=== PATIENT | male | born 1990 | race Caucasian/White ===

== ENCOUNTER 2024-10-18 01:34 | Emergency (ER) | payer SELFPAY ==
[2024-10-18 01:57] VITALS: BP 144/113; PULSE 96; TEMP 36.4; O2SAT 98
--- NOTE | 2024-10-18 02:09 | ECG_ITS ---
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
[2024-10-18 02:30] VITALS: PULSE 98
[2024-10-18 02:38] LABS: Basophils Absolute Auto 0.1 10^3/uL (0.0-0.1); Basophils Percent Auto 0.7 % (0.2-2.0); Eosinophils Absolute Auto 0.4 10^3/uL (0.0-0.7); Eosinophils Percent Auto 3.4 % (0.9-7.0); Hematocrit 50.1 % (42.0-54.0); Hemoglobin 17.4 g/dL (14.0-18.0); Immature Granulocytes Abs Auto 0.03 10^3/uL (0.00-0.03); Immature Granulocytes Pct Auto 0.3 % (0.0-0.5); Lymphocytes Absolute Auto 4.5 10^3/uL (1.2-3.8); Mean Corpuscular HGB Conc 34.7 g/dL (29.9-35.2); Mean Corpuscular Hemoglobin 33.6 pg (25.9-34.0); Mean Corpuscular Volume 96.7 fL (80.0-94.0); Monocytes Absolute Auto 0.9 10^3/uL (0.3-0.8); Monocytes Percent Auto 7.6 % (1.7-12.0); Neutrophils Absolute Auto 5.4 10^3/uL (1.4-6.5); Platelet Count 287 10^3/uL (150-450); Red Blood Count 5.18 10^6/uL (4.70-6.10); Red Cell Distribution Width 12.1 % (11.0-15.0); White Blood Count 11.2 10^3/uL (4.0-11.0)
[2024-10-18 02:50] VITALS: PULSE 82; O2SAT 95
[2024-10-18] MEDS: IPRATROPIUM/ALBUTEROL SULFATE 3 ML AMPUL.NEB IH (02:50)
[2024-10-18 02:51] LABS: Amphetamine Screen Urine NEGATIVE (NEGATIVE); Barbiturates Screen Urine NEGATIVE (NEGATIVE); Benzodiazepines Screen Urine NEGATIVE (NEGATIVE); Buprenorphine Screen Urine NEGATIVE (NEGATIVE); Cannabinoid Screen Urine POSITIVE (NEGATIVE); Cocaine Screen Urine NEGATIVE (NEGATIVE); Methadone Screen Urine NEGATIVE (NEGATIVE); Methamphetamines Screen Urine NEGATIVE (NEGATIVE); Opiate Screen Urine NEGATIVE (NEGATIVE); Oxycodone Screen Urine NEGATIVE (NEGATIVE); Phencyclidine Screen Urine NEGATIVE (NEGATIVE); Tricyclic Antidepressant Urine NEGATIVE (NEGATIVE)
[2024-10-18] MEDS: ZIPRASIDONE MESYLATE 20 MG VIAL IM (02:51)
[2024-10-18] MEDS: WATER FOR INJECTION, STERILE 20 ML VIAL INJ (02:51)
[2024-10-18] MEDS: NICOTINE 21 MG PATCH.TD24 TD (02:51)
[2024-10-18 02:54] VITALS: O2SAT 99
[2024-10-18 02:55] LABS: Alanine Aminotransferase 47 U/L (16-63); Albumin Globulin Ratio 1.1; Albumin Level 4.3 g/dL (3.4-5.0); Alkaline Phosphatase 54 U/L (46-116); Anion Gap 17.7; Aspartate Amino Transferase 23 U/L (15-37); BUN Creatinine Ratio 15.9; Bilirubin Total 0.3 mg/dL (0.2-1.0); Calcium 8.9 mg/dL (8.5-10.1); Carbon Dioxide 23.3 mmol/L (21.0-32.0); Chloride 103 mmol/L (98-107); Estimated GFR (African America >60 (>=60 mL/min/1.73m^2); Estimated GFR (Non-African Ame >60 (>=60 mL/min/1.73m^2); Ethanol 242 mg/dL; Globulin 3.8 g/dL; Glucose 105 mg/dL (74-106); Salicylate <2.8 mg/dL (<=19.9); Sodium 140 mmol/L (136-145); Total Protein 8.1 g/dL (6.4-8.2)
[2024-10-18 02:56] LABS: Acetaminophen <2.0 ug/mL (10.0-30.0)
--- NOTE | 2024-10-18 03:01 | RESP.RT ---
patient only took half of breathing treatment stating he didn't like it and it was making him anxious.
--- NOTE | 2024-10-18 03:07 | PC.NURSE ---
Patient could not finish breathing treatment as it was making him anxious
--- NOTE | 2024-10-18 03:08 | ED_ITS ---
HPI - Psych General Chief Complaint: Altered Mental Status Stated Complaint: PSYCHIATRIC SYMPTOMS Time Seen by Provider: 10/18/24 01:38 Source: Reports patient and friend (Girlfriend, Emily) Mode of arrival: walk-in Limitations: Reports no limitations History of Present Illness HPI Narrative: This 33-year-old male is brought to the emergency department by his girlfriend at his request. The patient is extremely agitated and irritable. He states he feels like he wants to hurt someone or kill someone. He also states he does not want to live anymore. He does not verbalize any specific suicidal plan. He st ates he just feels so agitated that he wants to lash out at somebody. He states he cannot stand the sound of his girlfriend's voice and feels like he is going to injure her in someway. She brought him to the emergency department for evaluation. Despite his thoughts of hurting her, she denies that he has ever injured her. He has a history of alcohol abuse since his teenage years. He has been to several alcohol rehab centers but states they only focus on his alcohol and that his mental health. He has racing thoughts and extreme amounts of rage. He was formally on Zoloft and BuSpar as well as trazodone for sleep but lost his insurance and it has not been on any of these medications in the last several months. He admits to daily alcohol use. The patient has the symptoms ongoing to some degree but they worsened over the weekend after going to visit family in [place]. The patient was raised in [place] until sixth grade and then moved in with his father in the [place] area. That is where he met his friend who is now his girlfriend since March. The patient does not have a relationship with his father. He states his mother is in a residential living arrangement and has mental health issues. He states he does not get along with his sister who he saw over the weekend which got him very upset. He has 2 children that he rarely gets to see ages 6 and 9. They live with their mother in [facility]. He admits to marijuana use that sometimes makes him feel better. He also admits to tobacco use and chews chewing tobacco. He states he has not been sleeping well for several months. His appetite is normal. He is currently working in a job where he does not feel appreciated which also makes him more frustrated and he does not have insurance currently as he is waiting for his 90-day cesar to acquire insurance with his current employer. I did speak to the patient's girlfriend privately when he was out of the room and she stated that he requested to come to the emergency department tonight to get help because he can no longer stand to feel the way he is feeling and he verbalized to her that his suicide plan would be to hang himself. She states that they had an argument earlier in the evening about their mosque believes and he becomes extremely mosque after drinking and becoming intoxicated. She states the symptoms have been going on for the past 1 to 2 months but worse recently. She feels that this is partially related to his recent visitation with his sister over the . MD complaint: suicidal ideation and feels depressed Duration: constant and getting worse Related Data Allergies Allergy/AdvReac Type Severity Reaction Status Date / Time No Known Drug Allergies Allergy Verified 10/18/24 02:12 Review of Systems ROS Status of ROS 10 or more systems reviewed and unremark able except as noted in history and below Exam Narrative Exam Narrative: Vital signs and Nursing Notes reviewed: Is afebrile with a normal pulse, blood pressure is elevated 144/113, he is not hypoxic with pulse ox of 99% on room air General: Awake, alert, oriented, agitated and irritable, at times he grabs his hair and shakes his head and becomes emotional and cries or pulls on his hair, no respiratory distress HEENT: Normocephalic atraumatic, mucous membranes are moist and pink, eyes are clear, conjunctiva are injected Neck: Supple, no meningeal signs, no anterior or posterior cervical lymphadenopathy Chest: Coarse breath sounds and expiratory wheezing bilaterally, no respiratory distress CVS: Regular rate and rhythm S1-S2, no murmurs rubs or gallops, pulses are brisk and equal bilaterally ABD: Soft, nondistended, nontender, no rebound guarding or rigidity, bowel sounds are normal, no pulsatile masses appreciated Extremities: Moving all extremities, no lower extremity tenderness or swelling noted, negative Homans' sign, pulses are brisk and equal bilaterally Skin: Normal in appearance without rash,pallor, petechiae or purpura Neuro: No focal deficits Psych: Admits to ongoing suicidal versus homicidal ideation stating he does not want to be here anymore and feels that hurting somebody would get him what he desires including hurting his girlfriend which she denies he has ever done. Has ongoing rage issues, admits to alcohol dependence, does not appear to be responding to internal stimuli, admits to poor sleep habits Constitutional Vital Signs, click to edit/add: Last Vital Signs Temp 97.6 F 10/18/24 01:57 Pulse 74 10/18/24 03:38 Resp 18 10/18/24 03:38 BP 128/88 10/18/24 03:38 Pulse Ox 99 10/18/24 03:38 O2 Del Method Room Air 10/18/24 02:50 Course Vital Signs Vital signs: Vital Signs Temperature 97.6 F 10/18/24 01:57 Pulse Rate 96 H 10/18/24 01:57 Respiratory Rate 24 H 10/18/24 01:57 Blood Pressure 144/113 H 10/18/24 01:57 Pulse Oximetry 98 10/18/24 01:57 Oxygen Delivery Method Room Air 10/18/24 01:57 Temperature 97.6 F 10/18/24 01:57 Pulse Rate 74 10/18/24 03:38 Respiratory Rate 18 10/18/24 03:38 Blood Pressure 128/88 10/18/24 03:38 Pulse Oximetry 99 10/18/24 03:38 Oxygen Delivery Method Room Air 10/18/24 02:50 MDM - Psych MDM Narrative Medical decision making narrative: Medical clearance was ordered. His patient's EKG is a sinus rhythm at 92 bpm with a normal axis. WA interval is 136 ms, QRS duration 88 ms, QT 354 and QTc 404 ms. He was medicated with a dose of Geodon in the emergency department at his request to be knocked out so he can get some sleep. He was also given a DuoNeb treatment but that made him feel irritable and it was discontinued. He has a normal white count and hemoglobin. Electrolytes are normal. Urine tox is positive for marijuana which the patient admits to, aspirin and Tylenol levels are normal. Alcohol is elevated at 242. This patient was pink slipped by myself after his girlfriend divulged to me that he told her earlier this evening that he would hang himself after they had a disagreement about their mosque beliefs. She states that this often happens after he has been drinking heavily. He has slept for several hours after being given the Geodon. The case was discussed with [facility]. Repeat ETOH was ordered for 8 am. Lab Data Attestation: I reviewed the patient's lab results. Labs: Lab Results 10/18/24 10/18/24 Range/Units 02:30 02:35 WBC 11.2 H (4.0-11.0) 10^3/uL RBC 5.18 (4.70-6.10) 10^6/uL Hgb 17.4 (14.0-18.0) g/dL Hct 50.1 (42.0-54.0) % MCV 96.7 H (80.0-94.0) fL MCH 33.6 (25.9-34.0) pg MCHC 34.7 (29.9-35.2) g/dL RDW 12.1 (11.0-15.0) % Plt Count 287 (150-450) 10^3/uL MPV 10.0 (9.5-13.5) fL Neut % (Auto) 48.0 (43.0-75.0) % Lymph % (Auto) 40.0 (20.5-60.0) % [place] % (Auto) 7.6 (1.7-12.0) % Eos % (Auto) 3.4 (0.9-7.0) % Baso % (Auto) 0.7 (0.2-2.0) % Neut # (Auto) 5.4 (1.4-6.5) 10^3/uL Lymph # (Auto) 4.5 H (1.2-3.8) 10^3/uL York # (Auto) 0.9 H (0.3-0.8) 10^3/uL Eos # (Auto) 0.4 (0.0-0.7) 10^3/uL Baso # (Auto) 0.1 (0.0-0.1) 10^3/uL Abs Immat Gran (auto) 0.03 (0.00-0.03) 10^3/uL Imm/Tot Granulo (auto) 0.3 (0.0-0.5) % Sodium 140 (136-145) mmol/L Potassium 4.0 (3.5-5.1) mmol/L Chloride 103 (98-107) mmol/L Carbon Dioxide 23.3 (21.0-32.0) mmol/L Anion Gap 17.7 BUN 14.0 (7.0-18.0) mg/dL Creatinine 0.88 (0.70-1.30) mg/dL Est GFR ( Amer) >60 (>=60 mL/min/1.73m^2) Est GFR (Non-Af Amer) >60 (>=60 mL/min/1.73m^2) BUN/Creatinine Ratio 15.9 Glucose 105 (74-106) mg/dL Calcium 8.9 (8.5-10.1) mg/dL Total Bilirubin 0.3 (0.2-1.0) mg/dL AST 23 (15-37) U/L ALT 47 (16-63) U/L Alkaline Phosphatase 54 (46-116) U/L Total Protein 8.1 (6.4-8.2) g/dL Albumin 4.3 (3.4-5.0) g/dL Globulin 3.8 g/dL Albumin/Globulin Ratio 1.1 Salicylates <2.8 (<=19.9) mg/dL Urine Opiates Screen Negative (NEGATIVE) Ur Buprenorphine Scrn Negative (NEGATIVE) Ur Oxycodone Screen Negative (NEGATIVE) Urine Methadone Screen Negative (NEGATIVE) Acetaminophen <2.0 L (10.0-30.0) ug/mL Ur Barbiturates Screen Negative (NEGATIVE) U Tricyclic Antidepress Negative (NEGATIVE) Ur Phencyclidine Scrn Negative (NEGATIVE) Ur Amphetamines Screen Negative (NEGATIVE) U Methamphetamines Scrn Negative (NEGATIVE) U Benzodiazepines Scrn Negative (NEGATIVE) Urine Cocaine Screen Negative (NEGATIVE) U Cannabinoids Screen Positive A (NEGATIVE) Ethanol Quant 242 mg/dL ECG Data Attestation: I personally reviewed and interpreted this ECG as follows: (Sinus rhythm at 92 bpm, normal axis, normal intervals, no acute ST segment elevation or T wave inversion) Discharge Plan Discharge Chief Complaint: Altered Mental Status Clinical Impression: Alcoholic intoxication, Depression with suicidal ideation Patient Disposition: Still a Patient Print Language: Malay
--- NOTE | 2024-10-18 03:10 | PC.NURSE ---
Patient presents to ER for suicidal and homicidal thoughts that he states he can no longer handle Pt was in foster care for most of his childhood, states his entire biological family has mental health issues as well Pt was taking vyvanse, zoloft, buspar, and trazodone and quit them all cold 2 months ago as he lost his insurance due to job change Pt is an alcoholic and admits to drinking a 12 pack today but that is normal for him Pt had a stressful weekend with the Holidays and difficult family situations Pt has a new job which he will soon be offered insurance through but he is very unhappy with that job as well Pt's girlfriend Emily is at bedside Pt states they have been friends for 25 years but became a couple in March Pt states he did go to alcohol rehab and while on the Vyvanse was not drinking or experiencing any depression Pt repeatedly stating if he does not get help he is going to end up in long term Pt clenches his fists, grabs his hair and his head and breathes through emotions as he says he cant stand anyones voice and he is going to hit someone Pt then becomes tearful and states he does not want to be like this, he does not want to hurt anyone, he needs help Pt does not state a suicidal plan but that he does not want to be here anymore, and he does not want to hurt anyone and he can no longer handle these thoughts and rage Pt is cooperative with staff and accepting of medications and medical clearance test's Pt keeps asking to please be knocked out, pt states he cannot sleep. States he has not had a good sleep in 5 days At this time after receiving Geodon patient is lying in bed trying to get some rest
[2024-10-18 03:38] VITALS: BP 128/88; PULSE 74; O2SAT 99
--- NOTE | 2024-10-18 03:39 | PC.NURSE ---
This nurse called [address] and spoke with charge nurse Iva about a potential direct admit At this time am faxing all of his medical clearance paperwork as well as the pink slip
[2024-10-18 08:46] LABS: Ethanol 149 mg/dL
[2024-10-18] MEDS: LORAZEPAM 1 MG TABLET PO (10:18)
--- NOTE | 2024-10-18 12:58 | PC.NURSE ---
spoke with Floresita on the phone from [address] [place] [address] and gave phone report. pt cooperative while leaving
== END 2024-10-18 12:49 ==
PROVIDERS: Emergency Provider Emergency Medicine
DX: F32.A Depression, unspecified (principal); R45.851 Suicidal ideations; F10.229 Alcohol dependence with intoxication, unspecified; F17.220 Nicotine dependence, chewing tobacco, uncomplicated; Y90.8 Blood alcohol level of 240 mg/100 ml or more
CPT/HCPCS: 36415; 80053; 80179; 80307; 80320; 80329; 85025; 93005; 94640; 96372; 99284; J3486